=== PATIENT | female | born 1990 | race Caucasian/White ===

== ENCOUNTER → 2021-08-17 20:45 | Observation (INO) | END | disposition home or self-care (01) | LOC: 1NENULAB | PROVIDERS: ADMIT Registered Nurse; ATTEND Registered Nurse ==

== ENCOUNTER 2021-10-05 04:02 | Inpatient (IN) ==
[2021-10-05] MEDS ORDERED: Metoclopramide 10 MG/2 ML VIAL IVP PRN (04:14)
[2021-10-05] MEDS ORDERED: Naloxone 0.4 MG/ML INJ IVP PRN (04:14)
[2021-10-05] MEDS ORDERED: Lidocaine 1% 20 ML MDV INFILT PRN (04:14)
[2021-10-05] MEDS ORDERED: Ondansetron 4 MG/2 ML VIAL IVP PRN (04:14)
[2021-10-05] MEDS ORDERED: Azithromycin 500 MG in 0.9 % Sodium Chloride 250 ML IVPB PRN (04:14)
[2021-10-05] MEDS ORDERED: Famotidine 20 MG/2 ML VIAL IVP PRN (04:14)
[2021-10-05] MEDS ORDERED: *HR* Nalbuphine 10 MG/ML AMPUL IV PRN (04:14)
[2021-10-05] MEDS ORDERED: Ringers Solution, Lactated 1,000 ML IVC SCH (04:15)
[2021-10-05] MEDS ORDERED: miSOPROStoL 25 MCG TABLET PO PRN (04:16)
[2021-10-05 05:01] LABS: Basophils # 0.1 K/mcL (0.0-0.2); Basophils % 0.5 %; Eosinophils # 0.3 K/mcL (0.0-0.6); Eosinophils % 2.4 %; Hematocrit 31.9 % (35.3-44.9); Hemoglobin 10.7 g/dL (11.5-15.4); Immature Granulocytes % 0.7 % (0-4); Lymphocytes # 3.4 K/mcL (0.6-4.6); Lymphocytes % 31.5 %; Mean Corpuscular HGB Conc 33.5 g/dL (31.6-35.5); Mean Corpuscular Hemoglobin 31.8 pg (28.0-33.3); Mean Corpuscular Volume 94.9 fL (83.0-100.0); Mean Platelet Volume 9.3 fL (9.4-12.4); Monocytes # 0.8 K/mcL (0.0-1.3); Monocytes % 7.3 %; Neutrophils # 6.2 K/mcL (1.6-8.9); Platelet Count 314 K/mcL (140-400); Red Blood Count 3.36 M/mcL (3.82-4.97); Red Cell Distribution Width 13.2 % (11.5-14.5); Segmented Neutrophils % 57.6 %; White Blood Count 10.8 K/mcL (4.3-11.1)
[2021-10-05 05:06] LABS: Amphetamine Screen,Urine Negative ng/mL (Cutoff=1000); Barbiturate Screen,Urine Negative ng/mL (Cutoff=200); Benzodiazepines Screen,Urine Negative ng/mL (Cutoff=200); Cannabinoid Screen,Urine Negative ng/mL (Cutoff = 50); Cocaine Screen,Urine Negative ng/mL (Cutoff= 300); Opiate Screen,Urine Negative ng/mL (Cutoff=300); Phencyclidine Screen,Urine Negative ng/mL (Cutoff=25)
[2021-10-05 05:26] LABS: Influenza A PCR Negative (Negative); Influenza B PCR Negative (Negative); Resp. Syncytial Virus PCR Negative (Negative)
[2021-10-05 05:27] LABS: SARS-CoV-2 by PCR (In House) Negative (Negative)
[2021-10-05] MEDS ORDERED: EPHEDrine 50 MG/ML VIAL IVP PRN (07:23)
[2021-10-05] MEDS ORDERED: Epidural Premix (fent/bupiv) 110 ML EP SCH (07:30)
[2021-10-05] MEDS ORDERED: Oxytocin 20 units/ LR 1000 mL 20 UNIT/1,000 ML BAG IVC ONE (13:32)
[2021-10-05] MEDS ORDERED: Measles/Mumps/Rubella Vacc 0.5 ML VIAL SQ PRN (16:38)
[2021-10-05] MEDS ORDERED: Lanolin 7 G OINT...G. TP PRN (16:38)
[2021-10-05] MEDS ORDERED: Ondansetron ODT 4 MG TAB.RAPDIS SL PRN (16:38)
[2021-10-05] MEDS ORDERED: Benzocaine/Menthol 56 GM AEROSOL SPRAY TP PRN (16:38)
[2021-10-05] MEDS ORDERED: Rho Immune Globulin 1,500 UNIT SYRINGE IM PRN (16:38)
[2021-10-05] MEDS: Acetaminophen 325 MG TABLET PO SCH (18:08)
[2021-10-05] MEDS: Oxytocin 20 units/ LR 1000 mL 20 UNIT/1,000 ML BAG IVC SCH (18:08)
[2021-10-05 19:29] VITALS: O2SAT 99
[2021-10-05] MEDS ORDERED: SUBOXONE PO SCH (21:00)
[2021-10-05] MEDS: Ibuprofen 600 MG TABLET PO SCH (21:30)
[2021-10-06] MEDS: Ibuprofen 600 MG TABLET PO SCH ×2 (03:35→10:33)
[2021-10-06] MEDS: Oxytocin 20 units/ LR 1000 mL 20 UNIT/1,000 ML BAG IVC SCH (03:36)
[2021-10-06 04:42] LABS: Basophils # 0.1 K/mcL (0.0-0.2); Basophils % 0.3 %; Eosinophils # 0.2 K/mcL (0.0-0.6); Eosinophils % 1.2 %; Hematocrit 28.3 % (35.3-44.9); Hemoglobin 9.5 g/dL (11.5-15.4); Immature Granulocytes % 0.7 % (0-4); Lymphocytes # 3.2 K/mcL (0.6-4.6); Lymphocytes % 21.6 %; Mean Corpuscular HGB Conc 33.6 g/dL (31.6-35.5); Mean Corpuscular Hemoglobin 31.7 pg (28.0-33.3); Mean Corpuscular Volume 94.3 fL (83.0-100.0); Mean Platelet Volume 9.5 fL (9.4-12.4); Monocytes % 6.6 %; Neutrophils # 10.3 K/mcL (1.6-8.9); Platelet Count 298 K/mcL (140-400); Red Cell Distribution Width 13.2 % (11.5-14.5); Segmented Neutrophils % 69.6 %; White Blood Count 14.7 K/mcL (4.3-11.1)
[2021-10-06] MEDS: Acetaminophen 325 MG TABLET PO SCH ×2 (06:07)
[2021-10-06 07:38] VITALS: BP 82/50; PULSE 50; TEMP 98.2
[2021-10-06] MEDS ORDERED: Prenatal Vit/FA 1 EACH TABLET PO SCH (09:00)
[2021-10-06] MEDS ORDERED: SUBOXONE PO SCH (09:00)
== END 2021-10-06 10:40 | disposition home or self-care (01) | DRG 560 ==
LOC: 1NENULAB 04:02 → 1NENUOBS 16:37
PROVIDERS: ADMIT Student in an Organized Health Care Education/Training Program; ATTEND Student in an Organized Health Care Education/Training Program